=== PATIENT | female | born 1940 | race Caucasian/White ===

== ENCOUNTER → 2016-05-16 | Outpatient (CLI) | payer MEDICARE, OTHER | LOC: MW.CHFP 08:00 | PROVIDERS: ATTEND Family Medicine | DX: M71.22 Synovial cyst of popliteal space [Baker], left knee (principal); M17.12 Unilateral primary osteoarthritis, left knee; J44.9 Chronic obstructive pulmonary disease, unspecified | CPT/HCPCS: G0463 ==

== ENCOUNTER → 2016-05-22 | Outpatient (CLI) | payer MEDICARE, SELFPAY ==
[~2016-05-22] MED LIST: Albuterol 0.083% 2.5 MG/3 ML Neb Soln NEB ONE
== END | disposition home or self-care (01) ==
LOC: MW.RT 13:40
PROVIDERS: ATTEND Family Medicine
DX: J44.9 Chronic obstructive pulmonary disease, unspecified (principal)
CPT/HCPCS: 94060; 94729

== ENCOUNTER → 2016-06-01 | Outpatient (CLI) | payer MEDICARE, SELFPAY | END | disposition home or self-care (01) | LOC: MW.RT 13:07 | PROVIDERS: ATTEND Family Medicine | DX: J44.9 Chronic obstructive pulmonary disease, unspecified (principal) | CPT/HCPCS: 94060 ==

== ENCOUNTER → 2016-06-27 | Outpatient (CLI) | payer MEDICARE, OTHER, SELFPAY ==
--- NOTE | 2016-06-27 15:30 | CR ---
EXAMINATION: Left elbow HISTORY: Effusion COMPARISON: None TECHNIQUE: 3 views FINDINGS/IMPRESSION: There is no acute osseous abnormality, dislocation, or fracture identified. Mod erate degenerative changes are noted within the left elbow with mild joint space narrowing and osteo phyte formation. There is a moderate underlying joint effusion.
== END ==
LOC: MW.CHORTHO 13:02
PROVIDERS: ATTEND Physician Assistant
DX: M25.521 Pain in right elbow (principal); M25.421 Effusion, right elbow; M25.722 Osteophyte, left elbow; M12.811 Other specific arthropathies, not elsewhere classified, right shoulder; M19.021 Primary osteoarthritis, right elbow; M25.511 Pain in right shoulder
CPT/HCPCS: 20610; 73080-26-RT; 73080-RT; G0463; J1040

== ENCOUNTER → 2016-07-03 | Outpatient (CLI) | payer MEDICARE, OTHER | LOC: MW.CHFP 08:00 | PROVIDERS: ATTEND Family Medicine | DX: M19.021 Primary osteoarthritis, right elbow (principal) | CPT/HCPCS: G0463 ==

== ENCOUNTER 2019-09-07 16:06 | Emergency (ER) | payer MEDICARE ==
[2019-09-07] MEDS ORDERED: Acetaminophen 500 MG Tab PO ONE (16:28)
[2019-09-07] MEDS ORDERED: Ibuprofen 400 MG Tab PO ONE (16:28)
[2019-09-07 17:02] LABS: CARBON DIOXIDE,CO2 29.3 mmol/L (21.0-32.0); POTASSIUM,K 3.6 mmol/L (3.5-5.1)
--- NOTE | 2019-09-07 17:12 | EDM.PDOC ---
<Jose David Aaron - Last Filed: 09/07/19 19:28> ED HPI GENERAL MEDICAL PROBLEM - General Chief Complaint: Lower Extremity Injury/Pain Stated Complaint: POSSIBLE BLOOD CLOT Time Seen by Provider: 09/07/19 16:18 Source of Information: Reports: Patient History Limitations: Reports: No Limitations - History of Present Illness INITIAL COMMENTS - FREE TEXT/NARRATIVE: 78-year-old female with past medical history of COPD, hypertension, hyperlipidemia, remote history of breast cancer in remission presenting with right lower extremity pain and swelling. She was initially evaluated at [facility] in [place], [place] and was directed to our ED directly from their emergency department. There was not a telephone report given to myself or our ED nurse practitioner, and the patient arrived with incomplete medical records. I was able to call the [facility] ED and spoke with the treating PA to receive a telephone report about the patient's episode of care at that facility. The emergency department physician assistant production manager was concerned about a DVT in the right lower extremity given swelling and pain to the right foot. A d-dimer was obtained, which was abnormally elevated. The patient was then directed to come directly to our emergency department for a DVT ultrasound study. Here in our emergency department, the patient reports an approximately 2-week history of pain and swelling to the dorsum and lateral malleolus of the right ankle. No history of trauma or prior venous thromboembolism. Denies any history of active malignancy, chest discomfort, shortness of breath, recent surgery or immobilization or long travel, or hormonal use. No prior history of congestive heart failure, hepatic failure, or renal failure per the patient. Right Leg Pain Score (Numeric/FACES): 10 - Related Data Allergies Allergy/AdvReac Type Severity Reaction Status Date / Time No Known Allergies Allergy Verified 09/07/19 16:30 Home Meds: Home Meds Montelukast [Singulair] 10 mg PO BEDTIME 09/01/13 [History] DULoxetine [Cymbalta] 60 mg PO DAILY 12/15/13 [History] Benazepril HCl [Lotensin] 30 mg PO DAILY 09/07/19 [History] Furosemide 40 mg PO DAILY 09/07/19 [History] atorvaSTATin [Lipitor] 20 mg PO DAILY 09/07/19 [History] Past Medical History Cardiovascular History: Reports: High Cholesterol, Hypertension Respiratory History: Reports: COPD Psychiatric History: Reports: Depression Social & Family History - Tobacco Use Smoking Status *Q: Current Every Day Smoker Years of Tobacco use: 65 Packs/Tins Daily: 0.5 - Caffeine Use Caffeine Use: Reports: Coffee - Recreational Drug Use Recreational Drug Use: No Review of Systems - Review of Systems Constitutional: Denies: Fever Eyes: Reports: No Symptoms Ears: Reports: No Symptoms Nose: Denies: Pain Mouth/Throat: Denies: Pain Respiratory: Denies: Shortness of Breath, Hemoptysis Cardiovascular: Reports: Edema. Denies: Chest Pain GI/Abdominal: Denies: Abdominal Pain, Nausea, Vomiting Musculoskeletal: Reports: Foot Pain. Denies: Back Pain, Leg Pain Skin: Denies: Rash, Lesions Neurological: Denies: Headache ED EXAM, GENERAL - Physical Exam Exam: See Below Free Text/Narrative:: Vital signs reviewed. Nursing notes reviewed. Constitutional: Awake, alert, non-distressed. Head: Normocephalic, atraumatic. Eyes: EOMI, conjunctiva normal, no discharge, no scleral icterus. Ears, Nose, Throat: External ears and nose normal, moist oral mucosa. Cardiovascular: Tachycardic, 2+ right DP pulse, capillary refill less than 2 seconds. Edema noted to the dorsum of the right foot and the right lateral malleolus. No edema to the bilateral thighs or calves. RRR no MRG Pulmonary: normal work of breathing, no accessory muscle use. CTA BL Abdomen/GI: Soft, nontender, nondistended, no guarding or rigidity, no masses. Musculoskeletal: No deformities. Integumentary: Appropriate color for ethnicity, warm, dry, no pallor or jaundice, no rash. Neurologic: Alert, answering questions appropriately, normal speech, no facial droop, moving all extremities well. Psychiatric: Appropriate mood and affect, normal thought process. Course - Vital Signs Text/Narrative:: Patient hemodynamically stable, afebrile, well-appearing, looks nontoxic. Differential diagnosis includes but is not limited to: DVT, congestive heart failure, hepatic failure, renal failure, medication side effect, varicose veins, lymphedema, etc. DVT ultrasound study negative - demonstrated a right-sided Patterson cyst. Labs show mild renal insufficiency. Negative troponin. Complained of mild dyspnea. Given resting tachycardia and elevated D-dimer will pursue CT pulmonary angiogram study. Pending at time of shift change. Signed out in person to Dr. Joseph Pardo - refer to his note for final disposition. Departure - Departure Disposition: Home, Self-Care Clinical Impression: Patterson's cyst of knee, Pulmonary nodule, Hiatal hernia - Discharge Information Instructions: Pulmonary Nodule, Incidental Abnormal Radiological Finding, Patterson Cyst Referrals: Tylor Alejandro MD [Primary Care Provider] - 09/09/19 Forms: ED Department Discharge Additional Instructions: The following information is given to patients seen in the emergency department who are being discharged to home. This information is to outline your options for follow-up care. We provide all patients seen in our emergency department with a follow-up referral. The need for follow-up, as well as the timing and circumstances, are variable depending upon the specifics of your emergency department visit. If you don't have a primary care physician on staff, we will provide you with a referral. We always advise you to contact your personal physician following an emergency department visit to inform them of the circumstance of the visit and for follow-up with them and/or the need for any referrals to a consulting specialist. The emergency department will also refer you to a specialist when appropriate. This referral assures that you have the opportunity for follow-up care with a specialist. All of these measure are taken in an effort to provide you with opt imal care, which includes your follow-up. Under all circumstances we always encourage you to contact your private physician who remains a resource for coordinating your care. When calling for follow-up care, please make the office aware that this follow-up is from your recent emergency room visit. If for any reason you are refused follow-up, please contact the [facility] Emergency Department at and asked to speak to the emergency department charge nurse. If you do not have a primary care doctor, please follow up with the clinics below within 3-5 days. Sepsis Event Note (ED) - Evaluation Sepsis Screening Result: No Definite Risk <Joseph Pardo - Last Filed: 09/07/19 20:06> Review of Systems - Review of Systems Review Of Systems: See Below ED EXAM, GENERAL - Physical Exam Exam: See Below EKG INTERPRETATION EKG Interpretation Comments: 85 Bpm, NSR, normal QRS interval, no STEMI. EKG and rhythm strip interpreted by me at 1957 Course - Vital Signs Last Recorded V/S: Last Vital Signs Temp 96.9 F 09/07/19 16:32 Pulse 104 H 09/07/19 16:32 Resp 15 09/07/19 16:32 BP 167/92 H 09/07/19 16:32 Pulse Ox 94 L 09/07/19 16:32 - Orders/Labs/Meds Orders: Active Orders 24 hr Category Date Time Status Cardiac Monitoring [RC] . DIRECTED Care 09/07/19 17:22 Active Pulse Oximetry [RC] ASDIRECTED Care 09/07/19 17:22 Active Sodium Chloride 0.9% [Saline Flush] Med 09/07/19 17:22 Active 10 ml FLUSH ASDIRECTED PRN Sodium Chloride 0.9% [Saline Flush] Med 09/07/19 17:22 Active 2.5 ml FLUSH ASDIRECTED PRN Saline Lock Insert [OM.PC] Stat Oth 09/07/19 17:22 Ordered Medication Orders Sodium Chloride (Saline Flush) 10 ml FLUSH ASDIRECTED PRN PRN Reason: Keep Vein Open Sodium Chloride (Saline Flush) 2.5 ml FLUSH ASDIRECTED PRN PRN Reason: Keep Vein Open Labs: Laboratory Tests 09/07/19 09/07/19 09/07/19 Range/Units 16:38 16:38 16:38 WBC 7.81 (4.0-11.0) K/uL RBC 4.39 (4.30-5.90) M/uL Hgb 13.1 (12.0-16.0) g/dL Hct 40.1 (36.0-46.0) % MCV 91.3 (80.0-98.0) fL MCH 29.8 (27.0-32.0) pg MCHC 32.7 (31.0-37.0) g/dL RDW Std Deviation 43.3 (28.0-62.0) fl RDW Coeff of Dany 13 (11.0-15.0) % Plt Count 232 (150-400) K/uL MPV 9.70 (7.40-12.00) fL Neut % (Auto) 77.3 (48.0-80.0) % Lymph % (Auto) 12.8 L (16.0-40.0) % Bethel % (Auto) 8.6 (0.0-15.0) % Eos % (Auto) 1.0 (0.0-7.0) % Baso % (Auto) 0.3 (0.0-1.5) % Neut # (Auto) 6.0 H (1.4-5.7) K/uL Lymph # (Auto) 1.0 (0.6-2.4) K/uL Bethel # (Auto) 0.7 (0.0-0.8) K/uL Eos # (Auto) 0.1 (0.0-0.7) K/uL Baso # (Auto) 0.0 (0.0-0.1) K/uL Nucleated RBC % 0.0 /100WBC Nucleated RBCs # 0 K/uL INR 0.99 Sodium 140 (136-145) mmol/L Potassium 3.6 (3.5-5.1) mmol/L Chloride 102 (98-107) mmol/L Carbon Dioxide 29.3 (21.0-32.0) mmol/L BUN 20 H (7.0-18.0) mg/dL Creatinine 1.2 H (0.6-1.0) mg/dL Est Cr Clr Drug Dosing 29.57 mL/min Estimated GFR (MDRD) 43.2 ml/min Glucose 140 H (74-106) mg/dL Calcium 9.1 (8.5-10.1) mg/dL Troponin I (0.000-0.056) ng/mL 09/07/19 Range/Units 16:38 WBC (4.0-11.0) K/uL RBC (4.30-5.90) M/uL Hgb (12.0-16.0) g/dL Hct (36.0-46.0) % MCV (80.0-98.0) fL MCH (27.0-32.0) pg MCHC (31.0-37.0) g/dL RDW Std Deviation (28.0-62.0) fl RDW Coeff of Dany (11.0-15.0) % Plt Count (150-400) K/uL MPV (7.40-12.00) fL Neut % (Auto) (48.0-80.0) % Lymph % (Auto) (16.0-40.0) % Bethel % (Auto) (0.0-15.0) % Eos % (Auto) (0.0-7.0) % Baso % (Auto) (0.0-1.5) % Neut # (Auto) (1.4-5.7) K/uL Lymph # (Auto) (0.6-2.4) K/uL Bethel # (Auto) (0.0-0.8) K/uL Eos # (Auto) (0.0-0.7) K/uL Baso # (Auto) (0.0-0.1) K/uL Nucleated RBC % /100WBC Nucleated RBCs # K/uL INR Sodium (136-145) mmol/L Potassium (3.5-5.1) mmol/L Chloride (98-107) mmol/L Carbon Dioxide (21.0-32.0) mmol/L BUN (7.0-18.0) mg/dL Creatinine (0.6-1.0) mg/dL Est Cr Clr Drug Dosing mL/min Estimated GFR (MDRD) ml/min Glucose (74-106) mg/dL Calcium (8.5-10.1) mg/dL Troponin I < 0.050 (0.000-0.056) ng/mL Meds: Medications Generic Name Dose Route Start Last Admin Trade Name Freq PRN Reason Stop Dose Admin Sodium Chloride 10 ml 09/07/19 17:22 Saline Flush FLUSH ASDIRECTED PRN Keep Vein Open Sodium Chloride 2.5 ml 09/07/19 17:22 Saline Flush FLUSH ASDIRECTED PRN Keep Vein Open Discontinued Medications Generic Name Dose Route Start Last Admin Trade Name Freq PRN Reason Stop Dose Admin Acetaminophen 1,000 mg 09/07/19 16:28 09/07/19 16:39 Tylenol Extra Strength PO 09/07/19 16:29 1,000 mg ONETIME ONE Administration Ibuprofen 400 mg 09/07/19 16:28 09/07/19 16:40 Motrin PO 09/07/19 16:29 400 mg ONETIME ONE Administration Iopamidol 100 ml 09/07/19 18:34 09/07/19 18:34 Isovue-370 (76%) IVPUSH 09/07/19 18:35 100 ml ONETIME ONE Administration - Re-Assessments/Exams Free Text/Narrative Re-Assessment/Exam: 09/07/19 19:49 After prolonged observation in the ER, patient improved clinically and is currently stable for discharge. I performed a repeat exam and did not appreciate new abnormal findings. Patient exhibits normal vital signs and has a normal gait. I advised the patient to return to the ER for reevaluation if symptoms worsened, including fever, worsening pain, or any other worrisome symptoms. I instructed the patient to follow up with their PCP within 2-3 days. I informed the patient of her pulmonary nodule incidentally discovered on CT, and to follow-up with her PCP in regards to her pulmonary nodule. She has an appointment with her PCP on Sunday. MEDICAL DECISION MAKING: I reviewed the patients past medical records, lab and radiographic findings. I discussed the case with the patient. My differential diagnosis included: DVT, Patterson's cyst, PE. Ultrasound did not reveal DVT, it did demonstrate a popliteal cyst, this is the location of her tenderness, I suspect this was contributing to her pain. She denies fever, chills, chest pain, shortness of breath, dyspnea on exertion, myalgia, weakness, nausea, vomiting, diarrhea, CTA chest was performed secondary to c/o SOB and tachycardia by previous provider. CTA did not find PE. It did demonstrate large hiatal hernia and pulmonary nodule. I did discuss this with the patient regarding her pulmonary nodule and to have her PCP follow-up on the progression of her pulmonary nodule. Departure - Departure Time of Disposition: 19:53 Condition: Good - Discharge Information *PRESCRIPTION DRUG MONITORING PROGRAM REVIEWED*: Not Applicable *COPY OF PRESCRIPTION DRUG MONITORING REPORT IN PATIENT [place]ACO: Not Applicable Sepsis Event Note (ED) - Focused Exam Vital Signs: Vital Signs Temp Pulse Resp BP Pulse Ox 09/07/19 16:32 96.9 F 104 H 15 167/92 H 94 L
[2019-09-07] MEDS ORDERED: Sodium Chloride 0.9% 2.5 ML Syringe FLUSH PRN (17:22)
[2019-09-07] MEDS ORDERED: Sodium Chloride 0.9% 10 ML Syringe FLUSH PRN (17:22)
--- NOTE | 2019-09-07 17:53 | US ---
INDICATION: Swelling in the right foot. Elevated D-dimer. COMPARISON: None. TECHNIQUE: A compression venous ultrasound exam was performed of the right lower extremity using buitrago-scale imaging, color Doppler and spectral Doppler analysis. FINDINGS: Sonographic imaging of the right lower extremity demonstrates normal compressibility and color Doppler venous blood flow within the common femoral vein, deep femoral vein, and the proximal greater saphenous vein. Within the thigh, the femoral vein is patent and compressible. At a lower level, the popliteal, peroneal, and posterior tibial veins also show normal compressibility and color Doppler venous blood flow. There is a large complex right popliteal fossa cyst measuring approximately 3 x 4 x 7 cm. IMPRESSION: 1. Negative for acute DVT in the right lower extremity. 2. Large complex right popliteal fossa cyst measuring approximately 3 x 4 x 7 cm. Dictated by Lissy Bertrand MD @ Sep 07 2019 5:49PM Signed by Dr. Lissy Bertrand @ Sep 07 2019 5:52PM
[2019-09-07] MEDS ORDERED: Iopamidol 755 Mg/ML 100 ML Bottle IVPUSH ONE (18:34)
--- NOTE | 2019-09-07 19:25 | CT ---
INDICATION: Dyspnea, tachycardia, elevated D-dimer. COMPARISON: None available. TECHNIQUE: CTA of the chest. FINDINGS: No pulmonary artery embolism. Large hiatal hernia. No obvious dissection. Coronary artery calcifications. Multiple calcified mediastinal lymph nodes and left hilar lymph nodes. Clips in the left axillary region. Status post left mastectomy. Left apex nodule measuring 7 mm (image 77, series 801). Multiple calcified pulmonary nodules. 5 mm pulmonary nodule right lower lobe (see image 293, series 81). No evidence of pneumonia. Severe degenerative change right glenohumeral joint. Severe kyphosis. At the thoracolumbar junction there is mild retrolisthesis of a lower thoracic vertebral body and cirrhosis, with some subchondral and intervertebral lucency, which most likely is degenerative, however nonspecific. No definite acute appearing fracture of the thoracic spine. 8 mm pulmonary nodule in the right upper lobe on image 212, series 801. IMPRESSION: 1. No pulmonary artery embolism. 2. Coronary artery calcification. 3. No thoracic aortic aneurysm. No obvious dissection. 4. No evidence of pneumonia. 5. Several scattered pulmonary nodules bilaterally measuring up to 8 mm in the right upper lobe. 6. Status post left mastectomy and left axillary lymph node dissection. 7. Large hiatal hernia. Please note that all CT scans at this facility use dose modulation, iterative reconstruction, and/or weight-based dosing when appropriate to reduce radiation dose to as low as reasonably achievable. Dictated by Naveed Montenegro MD @ Sep 07 2019 7:13PM (Electronically Signed)
[2019-09-08 05:04] VITALS: BP 133/72; PULSE 80
== END 2019-09-07 20:16 | disposition home or self-care (01) ==
LOC: MW.ED 16:06
DX: M71.21 Synovial cyst of popliteal space [Baker], right knee (principal); K44.9 Diaphragmatic hernia without obstruction or gangrene; R91.1 Solitary pulmonary nodule; I10 Essential (primary) hypertension; E78.00 Pure hypercholesterolemia, unspecified; J44.9 Chronic obstructive pulmonary disease, unspecified; F32.9 Major depressive disorder, single episode, unspecified; F17.210 Nicotine dependence, cigarettes, uncomplicated; Z79.899 Other long term (current) drug therapy
CPT/HCPCS: 36415; 71275; 80048; 84484; 85025; 85610; 93005; 93971; 99284; A9270; Q9967; 93010; 99283